=== PATIENT | female | born 2000 | race Caucasian/White ===

== ENCOUNTER 2022-12-16 20:06 | Emergency (ER) | payer BC, SELFPAY ==
[2022-12-16 20:14] VITALS: BP 136/94; PULSE 79; RESP 18; TEMP 36.3; O2SAT 100
[2022-12-16 20:42] LABS: Abs Immature Grans 0.01 10^3/uL (0.0-0.06); Absolute Basophil Count 0.05 10^3/uL (0.0-0.2); Absolute Eosinophil Count 0.04 10^3/uL (0.0-0.7); Absolute Lymphocyte Count 2.67 10^3/uL (1.2-3.4); Absolute Monocyte Count 0.37 10^3/uL (0.1-0.8); Absolute Neutrophil Count 4.17 10^3/uL (1.2-6.7); Basophils % 0.7; Eosinophils % 0.5; HCT 40.5 % (36.0-46.0); HGB 13.8 g/dL (11.2-15.7); Immature Grans % 0.1; Lymphocytes % 36.5; MCH 29.4 pg (27.0-33.0); MCHC 34.1 % (32.0-36.0); MCV 86 fL (80-95); MPV 9.1 fL (8.0-11.0); Monocytes % 5.1; Neutrophils % 57.1; Platelet Count 290 10^3/uL (130-400); RDW-SD 38.2 fL; WBC 7.31 10^3/uL (4.4-10.8)
--- NOTE | 2022-12-16 20:43 | W.ED.GENAD ---
Discharge Plan Disposition Patient Disposition: Home Condition: Stable Discharge Details Clinical Impression: Abdominal pain Primary Care Provider: Melissa,Local ED Provider: Cherelle Christianson Home Meds and New Rx's Prescriptions: No Action No Known Home Meds Discharge Instructions Instructions: Abdominal Pain (ED) Additional Instructions: The work-up today is within normal limits, no acute abnormality to explain your symptoms. Labs and urine are also within normal limits. You may take an [id number]-[id number] remedy such as Gas-X or milk of magnesia this seems to help. Follow up with primary care provider in 3-5 days. Return to ED sooner if any worsening or concerns. Increase oral fluids. Please take Tylenol or Ibuprofen with food every 4-6 hours as needed for pain and swelling. Medical Decision Making 22-year-old female presents to the ER with a chief complaint of sudden onset of abdominal pain which she describes as sharp. She reports that it began approximately 3 hours ago and has worsened. She states that it is constant but waxes and wanes. She reports nausea no vomiting no diarrhea no fever or chills. She last ate some trail mix at noon. No history of abdominal surgeries. Denies any vaginal discharge or bleeding. She reports a slim possibility of being . She did not take any medication prior to arrival. Denies any drugs or alcohol but does endorse occasional marijuana. She also denies being a smoker. Work-up ordered including CBC CMP lipase urinalysis urine test Zofran and a liter of normal saline. Labs are largely within normal limits. Patient reports that she feels much better after liter fluid and some Zofran. CT is pending at this time. CT WNL, Will plan to DC. Labs and CT result with patient verbalized understanding. She reports she is feeling much better. This text was generated using [employer] dictation system, please disregard any oddities of phrase or misspellings. Imaging Data Radiologic Study: Imaging: CT Scan Radiologist's impression: COMPARISON: No relevant prior studies available. FINDINGS: Liver: Normal. No mass. Gallbladder and bile ducts: Normal. No calcified stones. No ductal dilation. Pancreas: Normal. No ductal dilation. Spleen: Normal. No splenomegaly. Adrenal glands: Normal. No mass. Kidneys and ureters: Normal. No hydronephrosis. Stomach and bowel: Unremarkable. No obstruction. No mucosal thickening. Appendix: No evidence of appendicitis. Intraperitoneal space: Unremarkable. No free air. No significant fluid collection. Vasculature: Unremarkable. No abdominal aortic aneurysm. Lymph nodes: Unremarkable. No enlarged lymph nodes. Urinary bladder: Unremarkable as visualized. Reproductive: Partially collapsed functional cyst of the right ovary. Bones/joints: Unremarkable. No acute fracture. Soft tissues: Unremarkable. IMPRESSION: No acute findings. Lab Data Lab results reviewed: Yes I reviewed the patient's lab results. Labs: Laboratory Tests Range/Units 12/16/22 12/16/22 12/16/22 20:20 20:20 20:38 WBC (4.4-10.8) 10^3/uL 7.31 RBC (3.93-5.22) 10^6/uL 4.70 Hgb (11.2-15.7) g/dL 13.8 Hct (36.0-46.0) % 40.5 MCV (80-95) fL 86 MCH (27.0-33.0) pg 29.4 MCHC (32.0-36.0) % 34.1 RDW (11.7-14.6) % 12.0 Plt Count (130-400) 10^3/uL 290 MPV (8.0-11.0) fL 9.1 Immature Gran % 0.1 Neutrophils % 57.1 Lymphocytes % 36.5 Monocytes % 5.1 Eosinophils % 0.5 Basophils % 0.7 Nucleated RBC % (0.0-0.3) % 0.0 Absolute Neutrophils (1.2-6.7) 10^3/uL 4.17 Absolute Lymphocytes (1.2-3.4) 10^3/uL 2.67 Absolute Monocytes (0.1-0.8) 10^3/uL 0.37 Absolute Eosinophils (0.0-0.7) 10^3/uL 0.04 Absolute Basophils (0.0-0.2) 10^3/uL 0.05 Sodium (136-145) mmol/L 137 Potassium (3.5-5.1) mmol/L 3.5 Chloride (98-107) mmol/L 102 Carbon Dioxide (21.0-32.0) mmol/L 28.6 Anion Gap (3-11) mmol/L 6.4 BUN (7-18) mg/dL 8 Creatinine (0.55-1.02) mg/dL 0.7 Est GFR (CKD-EPI 2020) (mL/min/1.73m2) 125.33 Glucose (74-106) mg/dL 101 Calcium (8.5-10.1) mg/dL 9.0 Magnesium (1.8-2.4) mg/dL 2.3 Total Bilirubin (0.2-1.0) mg/dL 0.5 AST (15-37) U/L 31 ALT (14-59) U/L 22 Alkaline Phosphatase (46-116) U/L 36 L Total Protein (6.4-8.2) g/dL 7.7 Albumin (3.4-5.0) g/dL 4.6 Lipase (16-77) U/L 31 Urine Color (Yellow) Yellow Urine Clarity (Clear) Clear Urine pH (5-8) 6.0 Ur Specific [place] (1.005-1.025) <= 1.005 Urine Protein (Negative) mg/dL Negative Urine Ketones (Negative) mg/dL Trace H Urine Blood (Negative) Negative Urine Nitrite (Negative) Negative Urine Bilirubin (Negative) Negative Urine Urobilinogen (Up to 0.2) mg/dL 0.2 Ur Leukocyte Esterase (Negative) Negative Urine Glucose (Negative) mg/dL Negative HPI General Mode of arrival: ambulatory. Date/Time Provider Initiated Documentation: 12/16/22 20:14. Limitations to Documentation: no limitations. Information obtained by: patient, RN notes reviewed and old records reviewed. HPI Narrative: 22-year-old female presents to the ER with a chief complaint of sudden onset of abdominal pain which she describes as sharp. She reports that it began approximately 3 hours ago and has worsened. She states that it is constant but waxes and wanes. She reports nausea no vomiting no diarrhea no fever or chills. She last ate some trail mix at noon. No history of abdominal surgeries. Denies any vaginal discharge or bleeding. She reports a slim possibility of being . She did not take any medication prior to arrival. Denies any drugs or alcohol but does endorse occasional marijuana. She also denies being a smoker. Related Data Home Medications Medication Instructions Recorded Confirmed Unknown [No Known Home Meds] 12/16/22 12/16/22 Allergies Allergy/AdvReac Type Severity Reaction Status Date / Time No Known Allergies Allergy Verified 12/16/22 21:19 General Stated Complaint: Abd Prob DANE: 3 Review of Systems All systems reviewed & are unremarkable except as noted in HPI and below Gastrointestinal Gastrointestinal: Reports abdominal pain and Reports nausea PFSH All Active Problems (Updated 12/16/22 @ 22:29 by Cherelle Christianson NP) Abdominal pain (Acute) Social History Smoking/Tobacco Use Status: Never Smoking risk assessment performed?: Yes Drug use: Occasionally Substance use type: marijuana Do you feel safe at home: Yes Do you feel safe in your relationship?: Yes Exam Narrative Exam Narrative: Constitutional: Alert and oriented x3. Appears stated age. thin body habitus. Head: Normocephalic, no trauma. Eyes: Pupils PERRL, Red reflex noted, EOM's intact. Eyelids symmetrical without lesions, discharge, or swelling. ENT: Bilateral TM's WNL, External ear normal to inspection, no mastoid TTP, swelling, or erythema, Nasal turbinates WNL, no nasal discharge. Normal dentition, Posterior pharynx WNL, no exudate. Chest: RRR, Normal S1, S2, distal pulses intact. Resp: Lungs clear to auscultation bilaterally, no wheezes, rales, or rhonchi. Abdomen: Soft, non-distended, hypoactive bowel sounds all 4 quads. Tender in the right upper and left upper quadrant with palpation. Musculoskeletal: Normal gait, 5/5 strength to all four extremities. Skin: No suspicious rashes or lesions. Capillary refill less than 2 sec. Neurologic: Cranial nerves II-XII intact. Alert and oriented x 3. Motor: No deficits noted. Sensory: Intact bilaterally all 4 extremities. Reflexes: DTR's intact bilaterally.. Hematologic/Lymphatic: No ecchymosis, no lymphadenopathy. Course Vital Signs Vital signs: Vital Signs Temperature 36.3 C L 12/16/22 20:14 Pulse 79 12/16/22 20:14 Respiratory Rate 18 12/16/22 20:14 Blood Pressure 136/94 H 12/16/22 20:14 Pulse Oximetry 100 12/16/22 20:14 Temperature 36.3 C L 12/16/22 20:14 Temperature Source Temporal Artery Scan 12/16/22 20:14 Pulse 79 12/16/22 20:14 Respiratory Rate 18 12/16/22 20:14 Respiratory Effort Normal 12/16/22 20:20 Blood Pressure 136/94 H 12/16/22 20:14 Pulse Oximetry 100 12/16/22 20:14 Oxygen Delivery Method Room Air 12/16/22 20:14 Oxygen Flow Rate 0 12/16/22 20:14 Pain Level 8 12/16/22 20:14 Lab/Test Results Lab/Test Results: Laboratory Tests Range/Units 12/16/22 20:20 WBC (4.4-10.8) 10^3/uL 7.31 RBC (3.93-5.22) 10^6/uL 4.70 Hgb (11.2-15.7) g/dL 13.8 Hct (36.0-46.0) % 40.5 MCV (80-95) fL 86 MCH (27.0-33.0) pg 29.4 MCHC (32.0-36.0) % 34.1 RDW (11.7-14.6) % 12.0 Plt Count (130-400) 10^3/uL 290 MPV (8.0-11.0) fL 9.1 Immature Gran % 0.1 Neutrophils % 57.1 Lymphocytes % 36.5 Monocytes % 5.1 Eosinophils % 0.5 Basophils % 0.7 Nucleated RBC % (0.0-0.3) % 0.0 Absolute Neutrophils (1.2-6.7) 10^3/uL 4.17 Absolute Lymphocytes (1.2-3.4) 10^3/uL 2.67 Absolute Monocytes (0.1-0.8) 10^3/uL 0.37 Absolute Eosinophils (0.0-0.7) 10^3/uL 0.04 Absolute Basophils (0.0-0.2) 10^3/uL 0.05
[2022-12-16 20:48] LABS: Bilirubin Negative (Negative); Blood Negative (Negative); Clarity Clear (Clear); Glucose Negative (Negative); Ketones Trace mg/dL (Negative); Leukocyte Esterase Negative (Negative); Nitrite Negative (Negative); Specific Gravity <= 1.005 (1.005-1.025); Urobilinogen 0.2 mg/dL (Up to 0.2)
[2022-12-16 20:57] LABS: ALT 22 U/L (14-59); AST 31 U/L (15-37); Albumin 4.6 g/dL (3.4-5.0); Alkaline Phosphatase 36 U/L (46-116); Anion Gap 6.4 mmol/L (3-11); BUN 8 mg/dL (7-18); Bilirubin, Total 0.5 mg/dL (0.2-1.0); CO2 28.6 mmol/L (21.0-32.0); CREATININE 0.7 mg/dL (0.55-1.02); Chloride 102 mmol/L (98-107); Estimated GFR 125.33 (mL/min/1.73m2); Glucose 101 mg/dL (74-106); Lipase 31 U/L (16-77); Magnesium 2.3 mg/dL (1.8-2.4); Potassium 3.5 mmol/L (3.5-5.1); Sodium 137 mmol/L (136-145); Total Protein 7.7 g/dL (6.4-8.2)
[2022-12-16] MEDS: Normal Saline 1,000 ML 1000 ML IV (20:59)
[2022-12-16] MEDS: Ondansetron 4 MG/2 ML VIAL IVP (20:59)
--- NOTE | 2022-12-16 21:15 | DI.CT_ITS ---
Exam(s) CT ABDOMEN PELVIS W EXAM: CT ABDOMEN PELVIS W CLINICAL HISTORY: Abdominal Pain TECHNIQUE: Imaging Protocol: Axial computed tomography images with coronal and sagittal reformatted images were created and reviewed CONTRAST MATERIAL: Intravenous: Omnipaque 350 Contrast volume:100 mL Oral: None. COMPARISON: No exams were available for comparison FINDINGS: ABDOMEN: Lung Bases: Normal where visualized. Liver: Normal density. There is a 9 mm hypodense mass in the lateral aspect of the posterior segment of the right lobe of the liver. It shows nodular peripheral enhancement which is isodense to the aor ta. This is most consistent with a benign lesion such as a hepatic hemangioma. There is a similar 0 .7 cm lesion in the periphery of the left lobe of the liver. No suspicious hepatic masses are seen. Portal, Superior Mesenteric, and Splenic Veins: Unremarkable. Gallbladder and Biliary Tract: No radiodense calculus or dilation. Pancreas: Normal density, no abnormal calcifications or inflammatory process. Spleen: Normal. Adrenals: No masses seen. Kidneys: Normal size, contour and axis. No radiodense stones or obstructive uropathy. No masses seen. Abdominal Aorta: Abdominal portion non-dilated. Bowel: No obstruction or bowel wall thickening. There is a normal appendix. There is a moderate amou nt of stool. Peritoneal Cavity: There is a trace amount of free fluid in the pelvis. No free air. Lymph Nodes: Within normal limits. Bones: Within normal limits for the patient's age. Soft Tissues: Unremarkable. PELVIS: Bladder: Symmetric distention, no gross wall thickening. Reproductive Organs: Unremarkable as visualized. There is a 1.6 cm corpus luteal cyst on the right ov duy. Lymph Nodes: Within normal limits. Bones: Within normal limits for the patient's age. IMPRESSION: No acute abdominal or pelvic process. RADIATION DOSE DELIVERED: 671.16mGy.cm Total DLP DATA REPOSITORY: All CT scans at this facility are submitted to the National Radiology Data Registry (NRDR) Dose Index Registry (DIR) with the [employer] (A[employer]). RADIATION OPTIMIZATION: All CT scans at this facility use at least one of these dose optimization te chniques: automated exposure control; mA and/or kV adjustment per patient size (includes targeted exa ms where dose is matched to clinical indication); or iterative reconstruction.
[2022-12-16] MEDS: Omnipaque 350 MG/ML 100 ML BTL IJ (21:35)
[2022-12-16] MEDS: Normal Saline - Diluent 50 ML VIAL IJ (21:35)
--- NOTE | 2022-12-16 22:26 | DI.VRAD_ITS ---
PROCEDURE INFORMATION: Exam: CT Abdomen And Pelvis With Contrast Exam date and time: 12/16/2022 9:35 PM Age: 22 years old Clinical indication: Other: Abd pain TECHNIQUE: Imaging protocol: Computed tomography of the abdomen and pelvis with contrast. Contrast material: 350; Contrast volume: 100 ml; Contrast route: INTRAVENOUS (IV); COMPARISON: No relevant prior studies available. FINDINGS: Liver: Normal. No mass. Gallbladder and bile ducts: Normal. No calcified stones. No ductal dilation. Pancreas: Normal. No ductal dilation. Spleen: Normal. No splenomegaly. Adrenal glands: Normal. No mass. Kidneys and ureters: Normal. No hydronephrosis. Stomach and bowel: Unremarkable. No obstruction. No mucosal thickening. Appendix: No evidence of appendicitis. Intraperitoneal space: Unremarkable. No free air. No significant fluid collection. Vasculature: Unremarkable. No abdominal aortic aneurysm. Lymph nodes: Unremarkable. No enlarged lymph nodes. Urinary bladder: Unremarkable as visualized. Reproductive: Partially collapsed functional cyst of the right ovary. Bones/joints: Unremarkable. No acute fracture. Soft tissues: Unremarkable. IMPRESSION: No acute findings. Dictated and Authenticated by: Gian Flores MD. Ordering:DARREL Villarreal MD
[2022-12-16 22:37] VITALS: BP 102/69; PULSE 75; RESP 20; O2SAT 99
== END 2022-12-16 22:38 | disposition home or self-care (01) ==
PROVIDERS: Emergency Provider Registered Nurse Emergency
DX: R10.9 Unspecified abdominal pain (principal)
CPT/HCPCS: 80053; 81025; 83690; 96361; 96374; 99285; 74177; 81003; 83735; 85025; 99284; J2405; J3490